=== PATIENT | male | born 1955 | race Caucasian/White ===

== ENCOUNTER 2021-06-02 09:20 | Emergency (ER) | payer BC, OTHER ==
--- NOTE | 2021-06-02 10:43 | EDPHYS ---
Physician Documentation [facility] Name: Olayinka Slaes Age: 65 yrs Sex: Male : 1955 Arrival Date: 06/02/2021 Time: 09:21 Bed Waiting Private MD: BILLY Physician Mark Elizalde HPI: 06/02 10:41 This 65 yrs old Male presents to ER via Ambulatory with complaints of Arm kb Injury. 10:41 The patient or guardian complains of decreased range of motion, deformity, injury, kb pain, swelling, tenderness. The complaints affect the left forearm. Context: The problem was sustained outdoors, resulted from a fall, on an outstretched hand. Onset: The symptoms/episode began/occurred just prior to arrival. Treatment prior to arrival includes: no previous treatment. Modifying factors: The symptoms are alleviated by nothing. the symptoms are aggravated by movement. Associated signs and symptoms: Pertinent positives: decreased range of motion, pain, swelling. Severity of symptoms: At their worst the symptoms were moderate, in the emergency department the symptoms are unchanged. The patient has not experienced similar symptoms in the past. The patient has not recently seen a physician. Pt reports he fell backwards and put his arm out to catch himself. Reports deformity to left forearm afterwards, but he pulled it straight. . Historical: - Allergies: 09:57 Iodine; aa5 09:57 Paper tape; aa5 - Home Meds: 09:57 Enalapril Oral [Active]; Metoprolol Tartrate Oral [Active]; Flomax Oral [Active]; aa5 - PMHx: 09:57 Hypertensive disorder; aa5 - PSHx: 09:57 lumbar fusion; c4 to c7 fusion; right shoulder; Tonsillectomy; Appendectomy; left elbow;aa5 - Immunization history:: Client reports having NOT received the Covid vaccine. - Social history:: Smoking status: Patient reports the use of cigarette tobacco products, smokes one pack cigarettes per day. ROS: 10:38 Constitutional: Negative for fever, chills, and weight loss. kb 10:38 MS/extremity: Positive for injury or acute deformity, decreased range of motion, pain, swelling, tenderness, of the left forearm. 10:38 All other systems are negative. kb Exam: 10:39 Constitutional: This is a well developed, well nourished patient who is awake, alert, kb and in no acute distress. Head/Face: Normocephalic, atraumatic. ENT: Moist Mucous membranes Respiratory: Respirations even and unlabored. No increased work of breathing, no retractions or nasal flaring. Skin: Warm, dry with normal turgor. Normal color. Neuro: Awake and alert, GCS 15, oriented to person, place, time, and situation. Moves all extremities. Normal gait. Psych: Awake, alert, with orientation to person, place and time. Behavior, mood, and affect are within normal limits. 10:39 Musculoskeletal/extremity: Extremities: grossly normal except: noted in the left forearm: decreased ROM, pain, swelling, tenderness, ROM: limited active range of motion due to pain, in the left forearm, Circulation is intact in all extremities. Sensation intact. Vital Signs: 09:55 BP 143 / 72; Pulse 60; Resp 20 S; Temp 97.6(TE); Pulse Ox 99% on R/A; Weight 83.91 kg aa5 (R); Height 5 ft. 11 in. (180.34 cm) (R); Pain 8/10; 09:55 Body Mass Index 25.80 (83.91 kg, 180.34 cm) aa5 Procedures: 11:02 Splinting: Splint applied to left forearm using Orthoglass splint, applied by tech. kb Examined by me, post splint application: neurovascular intact, brisk capillary refill noted, Patient tolerated well. MDM: 09:58 Patient medically screened. kb 10:35 Data reviewed: vital signs, nurses notes. Data interpreted: Pulse oximetry: on room air kb is 99 %. Interpretation: normal. 10:39 Counseling: I had a detailed discussion with the patient and/or guardian regarding: the kb historical points, exam findings, and any diagnostic results supporting the discharge/admit diagnosis, radiology results, the need for outpatient follow up, a orthopedic surgeon, to return to the emergency department if symptoms worsen or persist or if there are any questions or concerns that arise at home. 10:53 Test interpretation: by ED physician or midlevel provider: plain radiologic studies. kb 06/02 09:55 Order name: Forearm Left XRAY; Complete Time: 10:53 aa5 06/02 10:39 Order name: Sugar Tong Forearm Splint; Complete Time: 11:01 kb 06/02 10:39 Order name: Faustino; Complete Time: 11:01 kb Administered Medications: 10:53 Drug: [place] (HYDROcodone-acetaminophen) (7.5 mg-325 mg) 1 tabs Route: PO; kb 10:53 Drug: Ibuprofen 800 mg Route: PO; kb Disposition: 06/03 07:51 Co-signature as Attending Physician, Mark Elizalde MD I agree with the assessment and benigno plan of care. Disposition Summary: 06/02/21 10:43 Discharge Ordered Location: Home kb Condition: Stable kb Diagnosis - Displaced fracture left radius kb Followup: kb - With: Emergency Department - When: As needed - Reason: Worsening of condition Followup: kb - With: Private Physician - When: 2 - 3 days - Reason: Recheck today's complaints, Continuance of care, Re-evaluation by your physician Discharge Instructions: - Discharge Summary Sheet kb - Radial Fracture kb Forms: - Medication Reconciliation Form kb - Thank You Letter kb - Antibiotic Education kb - Prescription Opioid Use kb Prescriptions: - Ibuprofen 800 mg Oral Tablet - take 1 tablet by ORAL route every 8 hours As needed take with food; 30 tablet; kb Refills: 0, Product Selection Permitted Signatures: Dispatcher [employer] EDAnca Madrigal, VIDEO GAME DEVELOPER-C VIDEO GAME DEVELOPER-Mark Wells MD MD cha Calderon, Audri, RN RN aa5 Corrections: (The following items were deleted from the chart) 06/02 09:59 09:57 PMHx: Hyperthyroidism; aa5 aa5
--- NOTE | 2021-06-02 10:43 | ER ---
Nurse's Notes [facility] Name: Olayinka Sales Age: 65 yrs Sex: Male : 1955 Arrival Date: 06/02/2021 Time: 09:21 Bed Waiting Private MD: Diagnosis: Displaced fracture left radius Presentation: 06/02 09:55 Chief complaint: Patient states: left forearm deformity. Pt states "I fell backwards aa5 and try to catch my fall and dislocated my left arm and I put it back in place". Coronavirus screen: At this time, the client does not indicate any symptoms associated with coronavirus-19. Ebola Screen: Patient negative for fever greater than or equal to 101.5 degrees Fahrenheit, and additional compatible Ebola Virus Disease symptoms. Initial Sepsis Screen: Does the patient meet any 2 criteria? No. Patient's initial sepsis screen is negative. Does the patient have a suspected source of infection? No. Patient's initial sepsis screen is negative. Risk Assessment: Do you want to hurt yourself or someone else? Patient reports no desire to harm self or others. Onset of symptoms was May 2021. 09:55 Method Of Arrival: Ambulatory aa5 09:55 Acuity: DEWAYNE 3 aa5 Historical: - Allergies: 09:57 Iodine; aa5 09:57 Paper tape; aa5 - Home Meds: 09:57 Enalapril Oral [Active]; Metoprolol Tartrate Oral [Active]; Flomax Oral [Active]; aa5 - PMHx: 09:57 Hypertensive disorder; aa5 - PSHx: 09:57 lumbar fusion; c4 to c7 fusion; right shoulder; Tonsillectomy; Appendectomy; left elbow;aa5 - Immunization history:: Client reports having NOT received the Covid vaccine. - Social history:: Smoking status: Patient reports the use of cigarette tobacco products, smokes one pack cigarettes per day. Vital Signs: 09:55 BP 143 / 72; Pulse 60; Resp 20 S; Temp 97.6(TE); Pulse Ox 99% on R/A; Weight 83.91 kg aa5 (R); Height 5 ft. 11 in. (180.34 cm) (R); Pain 8/10; 09:55 Body Mass Index 25.80 (83.91 kg, 180.34 cm) aa5 ED Course: 09:21 Patient arrived in ED. as 09:54 Arm band placed on. aa5 09:56 Triage completed. aa5 09:58 [facility]agen [facility]C [facility] kb 09:58 Mark Elizalde MD is Attending Physician. kb 10:33 Forearm Left XRAY In Process Unspecified. EDMS 11:01 Orthoglass splint: Sugar tong splint applied on left arm. Sling applied to left arm. em1 Administered Medications: 10:53 Drug: [place] (HYDROcodone-acetaminophen) (7.5 mg-325 mg) 1 tabs Route: PO; kb 10:53 Drug: Ibuprofen 800 mg Route: PO; kb Outcome: 10:43 Discharge ordered by . kb 11:03 Patient left the ED. em1 Signatures: Dispatcher [employer] EDMS Anca Hagen FNP-C FNP-Pua Lenz Eric em1 Stephanie Larsen RN RN aa5 Corrections: (The following items were deleted from the chart) 09:59 09:57 PMHx: Hyperthyroidism; aa5 aa5
--- NOTE | 2021-06-02 10:44 | RAD REPORT ---
EXAM DESCRIPTION: RAD - Forearm Left - 06/02/2021 10:30 am CLINICAL HISTORY: PAIN, fall COMPARISON: None. FINDINGS: Transverse fracture is present through the metaphyseal portion of the distal left radius. Several small fracture fragments are seen along the main fracture plane. There is a slight dorsal ang ulation of the distal fracture fragment with minimal impaction along the dorsal margin. No measurable distraction. Ulna styloid is fractured. Carpal bones maintain normal positioning to the distal radial fracture fragment. No carpal bone acute finding identifiable. Remainder of the radius and ulna are intact. There are degenerative changes at the elbow joint withou t an acute finding seen. Spurring is seen near the triceps attachment. No elbow joint effusions seen. No foreign body or other soft tissue abnormality. IMPRESSION: Distal left radius and ulna fractures as detailed.
[2021-06-02 11:08] VITALS: BP 143/72; TEMP 97.6; O2SAT 99
[2021-06-02] MEDS ORDERED: HYDROCODONE/APAP 7.5/325 MG TAB ONE (11:14)
[2021-06-02] MEDS ORDERED: IBUPROFEN 400 MG TAB ONE (11:14)
== END 2021-06-02 11:03 | disposition home or self-care (01) ==
LOC: ER 09:20
PROC: 2W3DX1Z Immobilization of Left Lower Arm using Splint (ICD-10-PCS; principal; 2021-06-02)
DX: S52.92XA Unspecified fracture of left forearm, initial encounter for closed fracture (principal); W19.XXXA Unspecified fall, initial encounter; Y93.89 Activity, other specified; Y92.89 Other specified places as the place of occurrence of the external cause; Z91.048 Other nonmedicinal substance allergy status; I10 Essential (primary) hypertension; F17.210 Nicotine dependence, cigarettes, uncomplicated
CPT/HCPCS: 99283

== ENCOUNTER 2022-04-19 21:54 | Inpatient (IN) | payer OTHER ==
[2022-04-19] MEDS ORDERED: MORPHINE 4 MG/ML SYR ONE (23:17)
[2022-04-19] MEDS ORDERED: ONDANSETRON 4 MG/2 ML VIAL ONE (23:17)
[2022-04-19 23:34] LABS: Urine Blood 2+ (Negative); Urine Glucose Negative (Negative); Urine Protein Negative (Negative); Urine Specific Gravity 1.025 (1.005-1.030); Urine pH 5.5 (5.0-7.0)
[2022-04-19 23:44] LABS: Absolute Lymphocytes (CBC) 1.3 K/uL (0.7-4.9); Hematocrit 41.2 % (39.6-49.0); Lymphocytes % 9.6 % (15.3-44.8); MCV 87.4 fL (80-100); MPV 7.2 fL (7.6-11.3); RBC Red Blood Cell Count 4.71 M/uL (4.33-5.43)
[2022-04-19 23:57] LABS: Albumin 3.4 g/dL (3.4-5.0); Bilirubin Total 0.3 mg/dL (0.2-1.0); Potassium 3.9 mmol/L (3.5-5.1); Protein, Total 7.2 g/dL (6.4-8.2)
[2022-04-20 00:22] LABS: Urine RBC >50 /HPF (NONE SEEN)
[2022-04-20 00:23] LABS: Urine Bacteria <20 /HPF (NONE SEEN)
--- NOTE | 2022-04-20 02:46 | EDPHYS ---
Physician Documentation [facility] Name: Olayinka Sales Age: 66 yrs Sex: Male : 1955 Arrival Date: 04/19/2022 Time: 21:58 Bed 27 Private MD: ED Physician Emiilano Anderson HPI: 04/19 22:45 This 66 yrs old Male presents to ER via Ambulatory with complaints of Urinary Problem. mh7 22:45 The patient presents with flank pain, described as intermittent, waxing/waning, of the mh7 right flank, scrotal pain, of both sides, urinary symptoms, dysuria, hesitancy to initiate urine stream. 22:45 Onset: The symptoms/episode began/occurred 1 week(s) ago. Modifying factors: The mh7 symptoms are alleviated by nothing, the symptoms are aggravated by urinating. Associated signs and symptoms: Pertinent negatives: constipation, diarrhea, fever, hematuria, nausea, vomiting. Severity of symptoms: At their worst the symptoms were moderate, 3 day(s) ago, in the emergency department the symptoms are unchanged. States that he was admitted at an out of state hospital a week a go for kidney stones. He complains of pain to bladder, dysuria, and testicular pain.. Historical: - Allergies: 22:19 Iodine; eh3 22:19 paper tape; eh3 - PMHx: 22:19 Hypertensive disorder; eh3 - PSHx: 22:19 Appendectomy; c4 to c7 fusion; left elbow; lumbar fusion; right shoulder; Tonsillectomy;eh3 - Immunization history:: Adult Immunizations up to date, Client reports having NOT received the Covid vaccine. - Social history:: Smoking status: Patient reports the use of cigarette tobacco products, smokes one-half pack cigarettes per day, Patient/guardian denies using alcohol. ROS: 22:45 Constitutional: Negative for fever, chills, and weight loss, Eyes: Negative for injury, mh7 pain, redness, and discharge, ENT: Negative for injury, pain, and discharge, Neck: Negative for injury, pain, and swelling, Cardiovascular: Negative for chest pain, palpitations, and edema, Respiratory: Negative for shortness of breath, cough, wheezing, and pleuritic chest pain, MS/Extremity: Negative for injury and deformity, Skin: Negative for injury, rash, and discoloration, Neuro: Negative for headache, weakness, numbness, tingling, and seizure, Psych: Negative for depression, anxiety, suicide ideation, homicidal ideation, and hallucinations, Allergy/Immunology: Negative for hives, rash, and allergies, Endocrine: Negative for neck swelling, polydipsia, polyuria, polyphagia, and marked weight changes, Hematologic/Lymphatic: Negative for swollen nodes, abnormal bleeding, and unusual bruising. Exam: 22:45 Head/Face: Normocephalic, atraumatic. Eyes: Pupils equal round and reactive to light, mh7 extra-ocular motions intact. Lids and lashes normal. Conjunctiva and sclera are non-icteric and not injected. Cornea within normal limits. Periorbital areas with no swelling, redness, or edema. Neck: Trachea midline, no thyromegaly or masses palpated, and no cervical lymphadenopathy. Supple, full range of motion without nuchal rigidity, or vertebral point tenderness. No Meningismus. Chest/axilla: Normal chest wall appearance and motion. Nontender with no deformity. No lesions are appreciated. 22:45 Respiratory: Lungs have equal breath sounds bilaterally, clear to auscultation and percussion. No rales, rhonchi or wheezes noted. No increased work of breathing, no retractions or nasal flaring. 22:45 Skin: Warm, dry with normal turgor. Normal color with no rashes, no lesions, and no evidence of cellulitis. MS/ Extremity: Pulses equal, no cyanosis. Neurovascular intact. Full, normal range of motion. Neuro: Awake and alert, GCS 15, oriented to person, place, time, and situation. Cranial nerves II-XII grossly intact. Motor strength 5/5 in all extremities. Sensory grossly intact. Cerebellar exam normal. Normal gait. Psych: Awake, alert, with orientation to person, place and time. Behavior, mood, and affect are within normal limits. 22:45 Constitutional: The patient appears in no acute distress, alert, awake, uncomfortable. 22:45 Cardiovascular: Rate: tachycardic, Rhythm: regular, Pulses: no pulse deficits are appreciated, Heart sounds: normal, normal S1and S2, Edema: is not appreciated, JVD: is not appreciated. 22:45 Abdomen/GI: Inspection: abdomen appears normal, Bowel sounds: normal, in all quadrants, Palpation: moderate abdominal tenderness, in the suprapubic area, mass, is not appreciated, rebound tenderness, is not appreciated, voluntary guarding, is not appreciated, involuntary guarding, is not appreciated, no appreciated organomegaly, Indicators: McBurney's point is not tender, Jones's sign is negative, Rovsing's sign is negative, Obturator sign is negative, Psoas sign is negative, Liver: no appreciated palpable abnormalities, Hernia: not appreciated. 22:45 Back: normal spinal alignment noted, CVA tenderness, that is mild, is noted on the right, vertebral tenderness, is not appreciated, muscle spasm, is not present. 22:45 : CVA tenderness, is absent, Male external genitalia: erythema, of the left testicle mh7 and right testicle is seen, that is moderate, swelling, of the left testicle and right testicle is noted, that is moderate, tenderness, of the left testicle is noted, that is mild, Bladder: distension, that is mild, tenderness, that is moderate. Vital Signs: 22:17 BP 155 / 90; Pulse 120; Resp 18; Temp 98.7(TE); Pulse Ox 95% on R/A; Weight 77.11 kg; eh3 Height 5 ft. 10 in. (177.80 cm); Pain 07/18; 04/20 02:15 BP 152 / 77; Pulse 66; Resp 18 S; Pulse Ox 100% on R/A; as6 03:08 BP 127 / 68; Pulse 51; Resp 18 S; Pulse Ox 98% on R/A; as6 03:57 BP 144 / 88; Pulse 65; Resp 18 S; Pulse Ox 100% on R/A; as6 07/12 22:17 Body Mass Index 24.39 (77.11 kg, 177.80 cm) [facility] MDM: 02:41 Differential diagnosis: nonspecific abdominal pain, appendicitis, UTI, urinary mh7 retention, prostatitis, urethritis. Data reviewed: vital signs, nurses notes, lab test result(s), CBC, electrolytes, urinalysis, radiologic studies, CT scan, ultrasound. Data interpreted: Pulse oximetry: on room air is 100 %. Interpretation: normal. Counseling: I had a detailed discussion with the patient and/or guardian regarding: the historical points, exam findings, and any diagnostic results supporting the discharge/admit diagnosis, lab results, radiology results, the need for further work-up and treatment in the hospital. Response to treatment: the patient's symptoms have mildly improved after treatment. Physician consultation: Dominik Fabian MD was contacted at 02:30, regarding patient's condition, and will see patient in inpatient room, would like admission per Dr. Yony Melgoza. 02:45 Patient medically screened. [facility] 04/19 22:42 Order name: CBC with Diff; Complete Time: 00:53 [facility] 04/19 22:42 Order name: CMP; Complete Time: 00:53 [facility] 04/19 22:42 Order name: Lipase; Complete Time: 00:53 [facility] 04/19 22:58 Order name: Urine Microscopic Only; Complete Time: 00:53 [facility] 04/19 22:58 Order name: Urine Culture [facility] 04/19 23:34 Order name: Urine Dipstick-Ancillary; Complete Time: 23:38 [facility] 04/19 22:42 Order name: CT Stone Protocol [facility] 04/19 23:38 Order name: US Scrotum Testicles [facility] 04/20 02:40 Order name: Blood Culture Adult (2) [facility] 04/20 03:12 Order name: SARS-COV-2 RT PCR (Document "Date of Onset" if Symptomatic); Complete Time: sb3 05:14 04/19 22:42 Order name: IV Saline Lock; Complete Time: 23:04 [facility] 04/19 22:42 Order name: Labs collected and sent; Complete Time: 23:36 [facility] 04/19 22:42 Order name: Urine Dipstick-Ancillary (obtain specimen); Complete Time: 23:38 [facility] 04/19 22:58 Order name: Stuart; Complete Time: 23:08 [facility] Administered Medications: 04/19 23:15 Drug: Zofran (Ondansetron) 4 mg Route: IVP; Site: left forearm; aa9 23:37 Follow up: Response: No adverse reaction [facility] 23:36 Drug: morphine 4 mg Route: IVP; Infused Over: 4 mins; Site: left forearm; aa9 23:37 Follow up: Response: No adverse reaction [facility] 04/20 03:40 Drug: Rocephin (cefTRIAXone) 1 grams Route: IV; Rate: per protocol; Site: right aa9 antecubital; 03:50 Follow up: Response: No adverse reaction aa9 03:52 Follow up: Response: No adverse reaction; IV Status: Completed infusion aa9 03:42 Drug: vancoMYCIN 1 grams Route: IVPB; Infused Over: 2 hrs; Site: right antecubital; aa9 Disposition Summary: 04/20/22 02:45 Hospitalization Ordered Hospitalization Status: Inpatient Admission [facility] Provider: Yony Melgoza Krystina Condition: Stable [facility] Problem: an ongoing problem [facility] Symptoms: have improved [facility] Bed/Room Type: Standard [facility]: [facility] ER HOLD(04/20/22 04:00) Room Assignment: ERHOLD-(04/20/22 04:00) cg Diagnosis - Scrotal cellulitis [facility] - Urinary Retention [facility] Forms: - Medication Reconciliation Form 7 - SBAR form 7 Signatures: Dispatcher [employer] Kelsea Meehan RN RN cg Holmes, Maurice, MD MD 7 Jan Sawyer RN RN as6 Soraya Irizarry PA PA [email or web address] Lata Horton 3 Kezia Trinh RN RN aa9 Corrections: (The following items were deleted from the chart) 04:00 02:45 Telemetry/MedSurg (Inpatient) 7 cg 04:00 02:45 7 cg
--- NOTE | 2022-04-20 02:46 | ER ---
Nurse's Notes [facility] Name: Olayinka Sales Age: 66 yrs Sex: Male : 1955 Arrival Date: 04/19/2022 Time: 21:58 Bed 27 Private MD: Diagnosis: Scrotal cellulitis;Urinary Retention Presentation: 04/19 22:17 Chief complaint: Patient states: I have a 7 mm kidney stone - progressively getting eh3 more painful. Pt reports difficulty urinating. C/O left testicle pain and swelling. Coronavirus screen: At this time, the client does not indicate any symptoms associated with coronavirus-19. Ebola Screen: No symptoms or risks identified at this time. Initial Sepsis Screen: Does the patient meet any 2 criteria? No. Patient's initial sepsis screen is negative. Does the patient have a suspected source of infection? No. Patient's initial sepsis screen is negative. Risk Assessment: Do you want to hurt yourself or someone else? Patient reports no desire to harm self or others. Onset of symptoms was April 19, 2022. 22:17 Method Of Arrival: Ambulatory [facility] 22:17 Acuity: DEWAYNE 3 eh3 Triage Assessment: 22:19 General: Appears in no apparent distress. uncomfortable, Behavior is cooperative, eh3 anxious. Pain: Complains of pain in pelvis Pain does not radiate. Pain currently is 10 out of 10 on a pain scale. Quality of pain is described as heavy, pressure, Pain began gradually. EENT: No signs and/or symptoms were reported regarding the EENT system. Neuro: Level of Consciousness is awake, alert, obeys commands, Oriented to person, place, time, situation. Cardiovascular: Capillary refill < 3 seconds Patient's skin is warm and dry. Respiratory: Airway is patent Respiratory effort is even, unlabored. GI: Abdomen is flat, non-distended. : Reports inability to void, pain scrotum, testicle, with urination. Derm: No signs and/or symptoms reported regarding the dermatologic system. Musculoskeletal: No signs and/or symptoms reported regarding the musculoskeletal system. Historical: - Allergies: 22:19 Iodine; eh3 22:19 paper tape; eh3 - PMHx: 22:19 Hypertensive disorder; eh3 - PSHx: 22:19 Appendectomy; c4 to c7 fusion; left elbow; lumbar fusion; right shoulder; Tonsillectomy;eh3 - Immunization history:: Adult Immunizations up to date, Client reports having NOT received the Covid vaccine. - Social history:: Smoking status: Patient reports the use of cigarette tobacco products, smokes one-half pack cigarettes per day, Patient/guardian denies using alcohol. Screenin:03 Abuse screen: Denies threats or abuse. Denies injuries from another. Nutritional aa9 screening: No deficits noted. Tuberculosis screening: No symptoms or risk factors identified. Fall Risk None identified. Assessment: 22:56 General: Appears distressed, comfortable, Behavior is calm, cooperative, anxious, aa9 states," I have a bladder stone, I feel like I have to pee but when I do it's only a few drops.". Pain: Complains of pain in suprapubic area Pain does not radiate. Vital Signs: 22:17 BP 155 / 90; Pulse 120; Resp 18; Temp 98.7(TE); Pulse Ox 95% on R/A; Weight 77.11 kg; 3 Height 5 ft. 10 in. (177.80 cm); Pain 10/10; 04/20 02:15 BP 152 / 77; Pulse 66; Resp 18 S; Pulse Ox 100% on R/A; as6 03:08 BP 127 / 68; Pulse 51; Resp 18 S; Pulse Ox 98% on R/A; as6 03:57 BP 144 / 88; Pulse 65; Resp 18 S; Pulse Ox 100% on R/A; as6 07 22:17 Body Mass Index 24.39 (77.11 kg, 177.80 cm) [facility] ED Course: 04/19 21:58 Patient arrived in ED. 2 22:19 Triage completed. 3 22:19 Arm band placed on right wrist. 3 22:22 Jan Sawyer, SIVAN is Primary Nurse. as6 22:23 Emiliano Anderson MD is Attending Physician. [facility] 23:03 Patient has correct armband on for positive identification. Bed in low position. Call aa9 light in reach. 23:03 Inserted saline lock: 18 gauge in right antecubital area, using aseptic technique. aa9 23:35 Stuart cath inserted, using sterile technique, 16 Fr., by mi, balloon inflated, to aa9 gravity drainage, urine specimen collected. 23:36 CBC with Diff Sent. aa9 23:36 CMP Sent. aa9 23:36 Lipase Sent. aa9 23:38 Urine Culture Sent. aa9 23:38 Urine Microscopic Only Sent. aa9 04/20 00:01 CT Stone Protocol In Process Unspecified. EDMS 00:39 US Scrotum Testicles In Process Unspecified. EDMS 02:43 Yony Melgoza is Hospitalizing Provider. 7 03:50 SARS-COV-2 RT PCR (Document "Date of Onset" if Symptomatic) Sent. aa9 03:58 No provider procedures requiring assistance completed. Patient admitted, IV remains in as6 place. Administered Medications: 04/19 23:15 Drug: Zofran (Ondansetron) 4 mg Route: IVP; Site: left forearm; aa9 23:37 Follow up: Response: No adverse reaction aa9 23:36 Drug: morphine 4 mg Route: IVP; Infused Over: 4 mins; Site: left forearm; aa9 23:37 Follow up: Response: No adverse reaction aa9 04/20 03:40 Drug: Rocephin (cefTRIAXone) 1 grams Route: IV; Rate: per protocol; Site: right aa9 antecubital; 03:50 Follow up: Response: No adverse reaction aa9 03:52 Follow up: Response: No adverse reaction; IV Status: Completed infusion aa9 03:42 Drug: vancoMYCIN 1 grams Route: IVPB; Infused Over: 2 hrs; Site: right antecubital; aa9 Medication: 03:58 VIS not applicable for this client. as6 Outcome: 02:45 Decision to Hospitalize by Provider. 7 03:58 Admitted to ER Hold. Please see [facility] for further documentation. as6 03:58 Condition: stable 03:58 Instructed on the need for admit. 13:28 Patient left the ED. iw Signatures: Dispatcher [employer] Enma Rodriguez, Emiliano Farrell RN, MD MD 7 Jodee Jeong Ashby, RN RN as6 Lata Horton [facility] Kezia Trinh RN RN aa9
[2022-04-20] MEDS ORDERED: NA CHLORIDE 0.9% 0 ML ONE (03:35)
[2022-04-20] MEDS ORDERED: VANCOMYCIN 1 GM/VIAL ONE (03:35)
[2022-04-20] MEDS ORDERED: CEFTRIAXONE 1000 MG/VIAL ONE (03:35)
[2022-04-20] MEDS ORDERED: NA CHLORIDE 0.9% 50 ML ONE (03:36)
[2022-04-20] MEDS ORDERED: NA CHLORIDE 0.9% 250 ML ONE (03:37)
--- NOTE | 2022-04-20 03:38 | P.HP ---
Certification for Inpatient Patient admitted to: Inpatient With expected LOS: <2 Midnights Patient will require the following post-hospital care: None Practitioner: I am a practitioner with admitting privileges, knowledge of patient current condition, hospital course, and medical plan of care. Services: Services provided to patient in accordance with Admission requirements found in Title 42 Section 412.3 of the Code of Federal Regulations Patient History Date of Service: 04/20/22 Reason for admission: Urinary Retention, Orchitis History of Present Illness: Patient is a 66 y/o male with hypertension who presented to the ED with complaints of dysuria, urinary retention, and left testicular pain/swelling. He reports that he was treated at an outside hospital about 1 week ago for a 7 mm kidney stone. Stuart was placed. WBC today 13.9. CT stone protocol today showed 6 mm stone in the posterior/dependent bladder, mild bilateral perinephritic stranding, bilateral hydroceles, prostate 5.7 cm in diameter. Scrotal US showed decreased arterial flow in both testicles, complex left scrotal hydrocele, and large right scrotal hydrocele. Urology was notified and does not think surgical intervention is necessary but has agreed to consult. Patient was started on vancomycin and rocephin in ED. He is admitted for further evaluation and treatment. Home medications list reviewed: Yes - Past Medical/Surgical History Diabetic: No -: Hypertension -: Appendectomy -: C4-C7 Fusion -: Lumbar Fusion -: R shoulder repair Psychosocial/ Personal History: Patient lives out of town. - Family History Family History: Reviewed- Non-Contributory - Social History Smoking Status: Current every day smoker Alcohol use: No CD- Drugs: No Caffeine use: Yes Place of Residence: Home Review of Systems Genitourinary: Dysuria, Frequency, Urgency, Retention Physical Examination - Physical Exam General: Alert, In no apparent distress HEENT: Atraumatic, PERRLA, EOMI, Sclerae nonicteric Neck: Supple, 2+ carotid pulse no bruit, No LAD, Without JVD or thyroid abnormality Respiratory: Clear to auscultation bilaterally, Normal air movement Cardiovascular: Regular rate/rhythm, Normal S1 S2 Gastrointestinal: Normal bowel sounds, No tenderness Musculoskeletal: No tenderness Integumentary: No rashes Neurological: Normal speech, Normal strength at 5/5 x4 extr, Normal tone, Normal affect Urinary: Stuart catheter - Studies Laboratory Data (last 24 hrs) 04/19/22 23:19: Sodium 140, Potassium 3.9, BUN 14, Creatinine 1.03, Glucose 125 H, Total Bilirubin 0.3, AST 20, ALT 34, Alkaline Phosphatase 141 H, Lipase 86 04/19/22 23:19: WBC 13.9 H, Hgb 13.9, Hct 41.2, Plt Count 474 H Male Exam - Male Exam Testicular exam: No twisting, Hydrocele, Other (swollen, tender) Assessment and Plan - Problems (Diagnosis) (1) 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 Monitor output -Morphine PRN pain -Monitor and replete electrolytes per protocol -Reconcile and continue home medications -Lovenox for VTE ppx -Full code Discharge Plan: Home Plan to discharge in: 48 Hours - Advance Directives Does patient have a Living Will: No Does patient have a Durable POA for Healthcare: No - Code Status/Comfort Care Code Status Assessed: Yes (Full) Critical Care: No Time Spent Managing Pts Care (In Minutes): 50
[2022-04-20] MEDS ORDERED: VANCOMYCIN 1 GM in NA CHLORIDE 0.9% 250 ML IVPB SCH (04:28)
[2022-04-20] MEDS ORDERED: ONDANSETRON 4 MG/2 ML VIAL IV PRN (04:28)
[2022-04-20] MEDS ORDERED: ACETAMINOPHEN 500 MG TAB PO PRN (04:28)
[2022-04-20] MEDS: MORPHINE 2 MG/ML SYR IV PRN ×4 (04:40→17:55)
[2022-04-20] MEDS ORDERED: MORPHINE 2 MG/ML SYR ONE ×3 (04:47→13:16)
[2022-04-20 05:31] VITALS: BMI 24.3
[2022-04-20] MEDS ORDERED: VANCOMYCIN 500 MG in NA CHLORIDE 0.9% 100 ML IVPB ONE (06:30)
[2022-04-20] MEDS ORDERED: POTASSIUM CL SA 10 MEQ TAB PO ONE ×2 (07:35→09:01)
[2022-04-20] MEDS: ENOXAPARIN 40 MG/0.4 ML SQ SCH (08:57)
[2022-04-20] MEDS: PIPER TAZO 3.375 GM in NA CHLORIDE 0.9% 100 ML IV SCH ×2 (08:57→16:03)
[2022-04-20] MEDS ORDERED: PIPERACIL/TAZO 3.375 GM VIAL IV ONE (09:01)
[2022-04-20] MEDS ORDERED: ENOXAPARIN 40 MG/0.4 ML SQ ONE (09:01)
[2022-04-20] MEDS ORDERED: NA CHLORIDE 0.9% 100 ML ONE ×2 (09:01→09:04)
[2022-04-20] MEDS ORDERED: VANCOMYCIN 500 MG/VIAL ONE (09:04)
[2022-04-20 10:45] VITALS: O2SAT 97
--- NOTE | 2022-04-20 12:38 | RAD REPORT ---
EXAM DESCRIPTION: US - Scrotum Testicles - 04/20/2022 1:53 am CLINICAL HISTORY: PAIN. COMPARISON: CT of the abdomen and pelvis from today. TECHNIQUE: Real-time grayscale and color Doppler imaging was obtained of the scrotum. FINDINGS: Right testicle/epididymis: The right testicle measures 3.9 x 3.4 x 2.9 cm. Homogeneous t esticular echotexture with normal arterial blood flow. Nonenlarged epididymis with normal blood [place] w. No varicocele. Large hydrocele. Left testicle/epididymis: The left testicle measures 4.3 x 3.4 x 3.3 cm. Homogeneous testicular ech otexture. Although arterial flow is identified to the left testicle, the flow is diminished in streng th as compared to the right. Nonenlarged epididymis with normal blood flow. No varicocele. Very c omplex medium sized hydrocele. IMPRESSION: 1. Arterial flow is identified in both testicles, although diminished on the left comp ared to the right. This is nonspecific. Differential includes intermittent torsion in the appropriate clinical setting. 2. Complex left scrotal hydrocele. 3. Large right scrotal hydrocele. Electronically signed by: Heather Vickers MD 04/20/2022 12:57 AM CDT Due to temporary technical issues with the PACS/Fluency reporting system, reports are being signed by the in house radiologists without review as a courtesy to insure prompt reporting. The interpreting radiologist is fully responsible for the content of the report.
--- NOTE | 2022-04-20 13:15 | RAD REPORT ---
EXAM DESCRIPTION: CT - Stone Protocol - 04/20/2022 6:39 am CLINICAL HISTORY: The patient is 66 years old and is Male; Flank pain, kidney stone suspected TECHNIQUE: Axial computed tomography images of the abdomen and pelvis without intravenous contrast. Sagittal and coronal reformatted images were created and reviewed. This CT exam was performed usi ng one or more of the following dose reduction techniques: automated exposure control, adjustment o f the mA and/or kV according to patient size, and/or use of iterative reconstruction technique. COMPARISON: No relevant prior studies available. FINDINGS: Lung bases: Unremarkable. No mass. No consolidation. ABDOMEN: Liver: Unremarkable. Gallbladder and bile ducts: Unremarkable. No calcified stones. No ductal dilation. Pancreas: Unremarkable. No ductal dilation. Spleen: Unremarkable. No splenomegaly. Adrenals: Unremarkable. No mass. Kidneys and ureters: Mild bilateral perinephric stranding. Nonobstructive calcification in the right kidney. Stomach and bowel: Unremarkable. No obstruction. No mucosal thickening. PELVIS: Appendix: No findings to suggest acute appendicitis. Bladder: There appears to be a 6 mm stone in the posterior/dependent bladder. The bladder is deco mpressed limiting evaluation. Stuart catheter in place. Reproductive: Bilateral hydroceles possibly with scrotal thickening. There is an asymmetric appea jamey to the testicles. Prostate is enlarged measuring up to 6.7 cm in diameter. ABDOMEN and PELVIS: Intraperitoneal space: Unremarkable. No free air. No significant fluid collection. Bones/joints: Indeterminate age fracture versus unfused transverse process at L2. Laminectomy with posterior jam and screw fixation at L4-5. No dislocation. Soft tissues: Unremarkable. Vasculature: Unremarkable. No abdominal aortic aneurysm. Lymph nodes: Unremarkable. No enlarged lymph nodes. IMPRESSION: 1. There appears to be a 6 mm stone in the posterior/dependent bladder. The bladder is decompressed limiting evaluation. 2. Mild bilateral perinephric stranding. 3. Bilateral hydroceles possibly with scrotal thickening. There is an asymmetric appearance to the te sticles. Consider scrotal ultrasound for further evaluation if clinically indicated. 4. Indeterminate age fracture versus unfused transverse process at L2. 5. Prostate is enlarged measuring up to 6.7 cm in diameter. 6. Stuart catheter in place. Electronically signed by: Shukri Fraire MD 04/20/2022 12:37 AM CDT Due to temporary technical issues with the PACS/Fluency reporting system, reports are being signed by the in house radiologists without review as a courtesy to insure prompt reporting. The interpreting radiologist is fully responsible for the content of the report.
[2022-04-20 15:17] LABS: Urine Appearance TURBID (Clear); Urine Bilirubin Negative (Negative); Urine Blood 3+ (Negative); Urine Color Yellow (Yellow); Urine Glucose Negative (Negative); Urine Protein 1+ (Negative); Urine Specific Gravity 1.025 (1.005-1.030); Urine Urobilinogen 0.2 mg/dL (0.2-1.0)
[2022-04-20 15:23] LABS: Urine Bacteria <20 /HPF (NONE SEEN); Urine Mucus 1+ /HPF (NONE SEEN); Urine RBC 20-50 /HPF (NONE SEEN)
--- NOTE | 2022-04-20 15:57 | P.PN ---
Date of Service: 04/20/22 Patient seen and examined. He is complaining of left scrotal pain. Had urinary retention on presentation, Stuart catheter inserted with good urine output. Urine was initially bloodstained but now dark-colored. Left scrotal swelling-complex left scrotal hydrocele per ultrasound. CT abdomen pelvis also indicated bladder stone and bilateral pyelonephritis. Plan: Aggressive antibiotic therapy Infectious disease consult. Pain management as needed Scrotal support. Follow blood cultures and urine culture. Urology consulted. Urine analysis was nondiagnostic for UTI.
[2022-04-20] MEDS: VANCOMYCIN 1.5 GM in NA CHLORIDE 0.9% 500 ML IVPB SCH (17:56)
[2022-04-21] MEDS ORDERED: VANCOMYCIN 1.5 GM in NA CHLORIDE 0.9% 500 ML IVPB SCH ×2
--- NOTE | 2022-04-21 00:55 | CON ---
Reason For Consultation: Testicular abnormality and pain. History Of Present Illness: Mr. Sales is a 66-year-old gentleman with no ongoing chronic medical p roblems, previously hypertensive and hypercholesterolemia but managed with significant weight loss, i ntentionally now on not of those medications, with longstanding issues of lower urinary tract obstruc tion due to BPH, previously managed on Flomax 0.4 mg daily. Within the last 3 weeks, he developed dy suria that progressed to left testicular swelling and pain. It was associated with fever and chills and resulted in him going to the emergency department in with a [facility] care. There, [place] [address] and being admitted to the hospital. He was treated initially with IV antimicrobials, and eventually transitioned to Levaquin. A week later, he needed to depart for some personal reasons and left against medical advice, discharged with a prescri ption for Levaquin 750 mg daily, continuing the Flomax, adding finasteride, and oxybutynin. While he noticed improvement in his left testicular swelling and pain, he presented to the emergency departme yesterday evening after noting increasing difficulty generating a void. Eventually, he could only trickle small amounts of urine out and had a very full bladder consistent with urinary retention and came to the emergency department. There, a Stuart catheter was placed with a large volume of urine d rained out. He has since been admitted because of concerns of findings on an ultrasound as described below. Past Medical History: None as above. Physical Examination: General: Well-appearing, and in no acute distress. Alert, awake, oriented x3. Chest: No dyspnea or sign of respiratory distress. Abdomen: Soft, nontender, nondistended, no masses. Back: No CVA tenderness. Genitalia: Circumcised without lesion, orthotopic meatus with urethral Stuart catheter in place, drain ing clear urine with some blood clot, occasional sediment noted. Testes bilaterally descended. Righ t mild hydrocele noted, but no right testicular masses. The left testis markedly enlarged, though mi nimally tender at this time. No scrotal crepitus or significant erythema noted. Scrotal ultrasound, 04/20/2022, revealed the presence of arterial flow to both testicles, but diminis hed on the left compared to the right. There was complex left scrotal hydrocele and a large right sc rotal hydrocele identified on ultrasound. A CT scan without contrast obtained 04/20/2022 was remarkable for the presence of a 6 mm stone depend ent within the bladder. Otherwise, there was mild bilateral perinephric stranding and a nonobstructi ve calcification in the right kidney. The Stuart catheter was appropriately positioned. Laboratory Data: Laboratory analysis revealed: White count 13.9, creatinine 1.03, urinalysis with mi croscopic assessment. No nitrites/leukocyte esterase at this time, greater than 50 rbc per HPF, 5 to 10 wbc per HPF. Assessment And Recommendations: This is a 66-year-old gentleman with no ongoing significant chronic medical conditions, but with chronic benign prostatic hypertrophy with obstruction and lower urinary tract symptoms, complicated by cysto prostatitis that developed into an epididymal orchitis and possi tonie a mild pyelonephritis, treated with presumptively culture sensitive Levaquin 750 mg daily, but wi th acute urinary retention, likely the consequence of treatment with oxybutynin, with which he was di scharged on following his visit and admission to the in [place], [place]. I recommend he maintain the urethral Stuart catheter for at least the next 7 to 10 days before followi ng up in the Urology Clinic for an active voiding trial. He should continue the Flomax, but the bene fit of the finasteride is limited at this time. I counseled him that he may continue the oxybutynin for bladder spasms while the catheter is in place , but he should discontinue taking the oxybutynin at least 24 hours prior to a scheduled voiding tria l, otherwise, he is unable and unlikely to be able to void sufficiently to pass the voiding trial. Subsequently, he will require cystoscopic evaluation and likely surgical management of his obstructio n due to BPH. PSA testing should also be arranged. I would also ensure he is treated with at least an additional 14 to 21 days of the Levaquin to comple tely resolve the epididymal orchitis. It would also be helpful to follow up with the for the culture results, on whi ch they based the decision to discharge him on Levaquin. [facility] success and the disk of medical information did not provide any culture results o r labs and only the CT scan and scrotal ultrasounds that he obtained there were visible to my review. Over 45 minutes of time was spent in this consultation, the majority in [id number] examination and counseling, but an additional 15 to 20 minutes attempting to review the records on CD and reach out t o the [facility] for culture results. TIAGO/AYESHA Voice ID: [id number] Report ID: [id number]
[2022-04-21] MEDS: PIPER TAZO 3.375 GM in NA CHLORIDE 0.9% 100 ML IV SCH ×3 (01:24→16:19)
[2022-04-21 04:19] LABS: Absolute Lymphocytes (CBC) 1.2 K/uL (0.7-4.9); Hematocrit 37.6 % (39.6-49.0); Lymphocytes % 10.4 % (15.3-44.8); MCV 87.4 fL (80-100); MPV 7.3 fL (7.6-11.3)
[2022-04-21 04:29] LABS: Potassium 4.3 mmol/L (3.5-5.1)
[2022-04-21] MEDS: ENOXAPARIN 40 MG/0.4 ML SQ SCH (08:29)
[2022-04-21] MEDS: VANCOMYCIN 1.5 GM in NA CHLORIDE 0.9% 500 ML IVPB SCH (13:23)
--- NOTE | 2022-04-21 14:50 | P.PN ---
Subjective Date of Service: 04/21/22 Chief Complaint: Urinary Retention, Orchitis Patient stated he feels much better today. He still report pain in the right inguinal area, no scrotal pain. No significant change in left testicular swelling. He has been afebrile. Physical Examination - Vital Signs Temperature: 98.7 F Blood Pressure: 133/74 Pulse: 66 Respirations: 16 Pulse Ox (%): 96 - Physical Exam General: Alert, In no apparent distress, Oriented x3 HEENT: Mucous membr. moist/pink Neck: Supple, JVD not distended Respiratory: Clear to auscultation bilaterally, Normal air movement Cardiovascular: No edema, Regular rate/rhythm, Normal S1 S2 Gastrointestinal: Normal bowel sounds, Soft and benign, Non-distended, No tenderness Musculoskeletal: No swelling, No tenderness Integumentary: No rashes, No erythema, No cyanosis Neurological: Normal speech, Normal strength at 5/5 x4 extr Lymphatics: No axilla or inguinal lymphadenopathy External genitalia: Other (Bilateral testicular swelling, worse on the left.) - Studies Microbiology Data (last 24 hrs): 04/19/22 23:32 Clean Catch Urine Mason Count - Final No growth. 04/19/22 23:32 Clean Catch Urine - Final No growth. Assessment And Plan - Current Problems (Diagnosis) (1) Acute cystitis with hematuria Current Visit: Yes Status: Acute (2) Acute urinary retention Current Visit: Yes Status: Acute (3) Bladder stone Current Visit: Yes Status: Acute (4) Enlarged prostate Current Visit: Yes Status: Acute (5) Orchitis and epididymitis Current Visit: Yes Status: Acute (6) Pyelonephritis Current Visit: Yes Status: Acute (7) Hydrocele of testis Current Visit: Yes Status: Chronic (8) Leukocytosis Current Visit: Yes Status: Acute Qualifiers: Leukocytosis type: unspecified Qualified Code(s): D72.829 - Elevated white blood cell count, unspecified - Plan Patient with multiple sites genitourinary function with accompanying bladder stone, BPH and testicular hydrocele. Urine culture and blood cultures have yielded no growth. Continue broad-spectrum antibiotics-Zosyn and vancomycin. Leukocytosis almost resolved. Seen by urology-Dr. Fabian who recommend to maintain Stuart catheter and follow- up with him in the office. Supportive measures Pain management as needed. Will treat with IV antibiotics for 1 more day and discharged with oral antibiotics.
[2022-04-21] MEDS ORDERED: KETOROLAC 30 MG/ML INJ IV PRN (14:53)
[2022-04-21] MEDS ORDERED: OXYBUTYNIN CHLORIDE 5 MG TAB PO ONE (20:41)
[2022-04-21] MEDS ORDERED: TAMSULOSIN 0.4 MG SR CAP PO ONE (20:41)
[2022-04-21] MEDS: MORPHINE 2 MG/ML SYR IV PRN (20:42)
[2022-04-22] MEDS: PIPER TAZO 3.375 GM in NA CHLORIDE 0.9% 100 ML IV SCH ×2 (01:38→08:27)
[2022-04-22] MEDS: MORPHINE 2 MG/ML SYR IV PRN (02:28)
[2022-04-22 04:47] LABS: Absolute Lymphocytes (CBC) 1.2 K/uL (0.7-4.9); Hematocrit 36.7 % (39.6-49.0); Lymphocytes % 11.6 % (15.3-44.8); MCV 86.5 fL (80-100); MPV 6.9 fL (7.6-11.3); RBC Red Blood Cell Count 4.24 M/uL (4.33-5.43)
[2022-04-22 04:59] LABS: Potassium 4.2 mmol/L (3.5-5.1)
[2022-04-22] MEDS: VANCOMYCIN 1.5 GM in NA CHLORIDE 0.9% 500 ML IVPB SCH (06:40)
[2022-04-22 08:23] VITALS: BP 138/71; TEMP 98.2
[2022-04-22] MEDS: ENOXAPARIN 40 MG/0.4 ML SQ SCH (08:26)
--- NOTE | 2022-04-22 08:51 | P.DS ---
Admission Date: 04/20/22 Discharge Date: 04/22/22 Disposition: ROUTINE DISCHARGE Discharge Condition: FAIR Reason for Admission: Urinary Retention, Orchitis - Problems (1) Acute cystitis with hematuria Status: Acute (2) Acute urinary retention Status: Acute (3) Bladder stone Status: Acute (4) Enlarged prostate Status: Acute (5) Orchitis and epididymitis Status: Acute (6) Pyelonephritis Status: Acute (7) Hydrocele of testis Status: Chronic (8) Leukocytosis Status: Acute Qualifiers: Leukocytosis type: unspecified Qualified Code(s): D72.829 - Elevated white blood cell count, unspecified Brief History of Present Illness: Patient is a 66 y/o male with hypertension who presented to the ED with complaints of dysuria, urinary retention, and left testicular pain/swelling. He reported that he was treated at an outside hospital about 1 week ago for urinary tract infection, a 7 mm kidney stone. Stuart was placed. WBC today 13.9. CT stone protocol here showed 6 mm stone in the posterior/dependent bladder, mild bilateral perinephritic stranding, bilateral hydroceles, prostate 5.7 cm in diameter. Scrotal US showed decreased arterial flow in both testicles, complex left scrotal hydrocele, and large right scrotal hydrocele. Urology was notified and he did not suggest any surgical intervention but agreed to consult. Patient was started on vancomycin and rocephin in ED and admitted for further management. Hospital Course: Patient admitted to the medical floor and treated with aggressive IV antibiotics-vancomycin and Zosyn. Urine culture and blood cultures yielded no growth. Patient's symptoms gradually improved with treatment. He has severe leukocytosis which resolved with antibiotics. He has been ambulatory, and eating well. Urology-Dr. Fabian saw him and recommended that his Stuart c atheter be retained and outpatient follow-up with him for voiding trial. Patient has clinically improved and deemed stable for discharge. He is prescribed Levaquin and doxycycline to continue treatment of his genitourinary infections. Vital Signs/Physical Exam: Temp Pulse Resp BP Pulse Ox 98.2 F 70 14 138/71 98 04/22/22 08:00 04/22/22 08:00 04/22/22 08:00 04/22/22 08:00 04/22/22 08:00 General: Alert, In no apparent distress, Oriented x3 HEENT: Mucous membr. moist/pink Neck: JVD not distended Respiratory: Clear to auscultation bilaterally, Normal air movement Cardiovascular: No edema, Regular rate/rhythm, Normal S1 S2 Gastrointestinal: Normal bowel sounds, Soft and benign, Non-distended, No tenderness Musculoskeletal: No swelling Integumentary: No rashes Neurological: Normal strength at 5/5 x4 extr External genitalia: Other (Bilateral testes swollen, worse on the on the left, overall the swelling have improved.) Laboratory Data at Discharge: WBC 10.3 K/uL (4.3-10.9) 04/22/22 04:30 Hgb 12.9 g/dL (13.6-17.9) L 04/22/22 04:30 Hct 36.7 % (39.6-49.0) L 04/22/22 04:30 Plt Count 381 K/uL (152-406) 04/22/22 04:30 Sodium 137 mmol/L (136-145) 04/22/22 04:30 Potassium 4.2 mmol/L (3.5-5.1) 04/22/22 04:30 BUN 15 mg/dL (7-18) 04/22/22 04:30 Creatinine 0.94 mg/dL (0.55-1.3) 04/22/22 04:30 Glucose 99 mg/dL (74-106) 04/22/22 04:30 Magnesium 2.0 mg/dL (1.8-2.4) 04/21/22 03:16 Total Bilirubin 0.3 mg/dL (0.2-1.0) 04/19/22 23:19 AST 20 U/L (15-37) 04/19/22 23:19 ALT 34 U/L (12-78) 04/19/22 23:19 Alkaline Phosphatase 141 U/L (45-117) H 04/19/22 23:19 Lipase 86 U/L (73-393) 04/19/22 23:19 Home Medications: Finasteride 5 mg PO DAILY 04/20/22 Oxybutynin Chloride 5 mg PO BID 04/20/22 Tamsulosin HCl [Flomax] 0.4 mg PO DAILY 04/20/22 Codeine/APAP [Tylenol W/Codeine #3 tab] 1 tab PO Q6HP PRN #20 tab 04/22/22 Doxycycline Hyclate 100 mg PO BID #14 capsule 04/22/22 Ibuprofen 400 mg PO TID #30 tablet 04/22/22 levoFLOXacin [Levaquin*] 750 mg PO DAILY #7 tab 04/22/22 New Medications: Codeine/APAP [Tylenol W/Codeine #3 tab] 1 tab PO Q6HP PRN #20 tab PRN Reason: Pain Doxycycline Hyclate 100 mg PO BID #14 capsule Ibuprofen 400 mg PO TID #30 tablet levoFLOXacin [Levaquin*] 750 mg PO DAILY #7 tab Followup: Hedy Gonzalez NP [Primary Care Provider] - Time spent managing pt's care (in minutes): 38
[2022-04-22] MEDS ORDERED: FINASTERIDE 5 MG TAB PO SCH (09:00)
[2022-04-22] MEDS ORDERED: TAMSULOSIN 0.4 MG SR CAP PO SCH (09:00)
--- OUTSIDE RECORDS SUMMARY | 2022-04-28 02:15 | XMS REPORT | Continuity of Care Document ---
:1955 Author Organization [facility] t Address [address] [place] [address] Dr. Cardenas[address] [place] [address] Care Team Providers Name Role Phone Carlos Attending Clinician Unavailable Problems This patient has no known problems. Allergies, Adverse Reactions, Alerts This patient has no known allergies or adverse reactions. Medications This patient has no known medications. Procedures This patient has no known procedures. Encounters Start End Encounter Admission Attending Care Care Encounter Source Date/Time Date/Time Type Type Clinicians Facility Department ID 2022-04-26 Outpatient Howard, STLMLC [facility] [id number] Common 09:39:[address] [facility] 2022-04-04 Outpatient Howard[facility] [id number] Common 09:42:[address] [facility] 2022-01-05 Outpatient Howard, STLMLC [facility] [id number] Common 06:45:[address] [facility] 2022-01-04 Outpatient Howard, STLMLC [facility] [id number] Common 10:15:[address] [facility] 2022-01-03 Outpatient Howard, STLMLC [facility] [id number] Common 14:33:[address] [facility] 2021-12-31 Outpatient Howard, STLMLC [facility] [id number] Common 10:31:[address] [facility] 2021-12-09 Outpatient Howard, STLMLC [facility] [id number] Common 14:22:[address] [facility] 2021-11-03 Outpatient Howard, STLMLC [facility] [id number] Common 14:13:[id number] [facility] 2021-11-03 Outpatient Howard, STLMLC [facility] [id number] Common 13:53:[id number] [facility] 2021-11-03 Outpatient Howard, STLMLC [facility] [id number] Common 13:45:[id number] [facility] 2021-11-03 Outpatient Howard, STLMLC [facility] [id number] Common 13:43:[id number] [facility] 2022-04-22 2022-04-22 ambulatory [facility]LMLC [facility] [id number] Common 00:00:00 00:00:00 [facility] 2022-04-18 2022-04-18 ambulatory STLMLC [facility] [id number] Common 00:00:00 00:00:00 [facility] 2022-04-05 2022-04-05 ambulatory STLMLC [facility] [id number] Common 00:00:00 00:00:00 [facility] 2022-01-04 2022-01-04 ambulatory [facility]LMLC [facility] [id number] Common 00:00:00 00:00:00 [facility] 2022-01-04 2022-01-04 ambulatory [facility]LMLC [facility] [id number] Common 00:00:00 00:00:00 [facility] 2021-12-28 2021-12-28 ambulatory STLMLC [facility] [id number] Common 00:00:00 00:00:00 [facility] 2021-10-29 2021-10-29 ambulatory STLMLC [facility] [id number] Common 00:00:00 00:00:00 [facility] 2021-08-23 2021-08-23 ambulatory STLMLC [facility] [id number] Common 00:00:00 00:00:00 [facility] 2021-07-08 2021-07-08 Outpatient [facility]C [facility] [id number] Common 00:00:00 00:00:00 [facility] 2021-07-06 2021-07-06 Outpatient [facility]C [facility] [id number] Common 00:00:00 00:00:00 [facility] 2021-06-24 2021-06-24 Outpatient [facility]C [facility] [id number] Common 00:00:00 00:00:00 [facility] 2021-06-21 2021-06-21 Outpatient [facility]C [facility] [id number] Common 00:00:00 00:00:00 [facility] 2021-06-10 2021-06-10 Outpatient [facility]C [facility] [id number] Common 00:00:00 00:00:00 [facility] 2021-06-03 2021-06-03 Outpatient [facility]C [facility] [id number] Common 00:00:00 00:00:00 [facility] Results This patient has no known results.
== END 2022-04-22 11:34 | disposition home or self-care (01) | DRG 690 ==
LOC: ER 21:54 → ERHOLD 04-20 03:32 → 4TH 04-20 12:49
PROVIDERS: ADMIT Internal Medicine; ATTEND Internal Medicine
DX: N30.01 Acute cystitis with hematuria (principal); N10 Acute pyelonephritis; N40.1 Benign prostatic hyperplasia with lower urinary tract symptoms; R33.8 Other retention of urine; N43.3 Hydrocele, unspecified; N45.3 Epididymo-orchitis; N21.0 Calculus in bladder; F17.210 Nicotine dependence, cigarettes, uncomplicated; Z20.822 Contact with and (suspected) exposure to COVID-19
CPT/HCPCS: 36415; 51702; 74176; 76377; 76870; 80048; 80053; 80202; 81003; 81015; 83690; 83735; 85025; 87040; 87086; 87088; 99285; J1650; J2270; J2405; J2543; J3370; J7040; J7050; U0003

== ENCOUNTER 2022-06-10 08:02 | Day surgery (SDC) | payer MEDICARE ==
[2022-06-10] MEDS ORDERED: CEFAZOLIN 2 GM IN 0.9% NACL 2 GM/100 ML BAG ONE (08:28)
[2022-06-10] MEDS ORDERED: Ringers Lactate 1,000 ML IV ONE ×2 (08:28→14:26)
[2022-06-10 08:35] LABS: Absolute Lymphocytes (CBC) 1.5 K/uL (0.7-4.9); Hematocrit 43.1 % (39.6-49.0); Lymphocytes % 18.8 % (15.3-44.8); MCV 86.5 fL (80-100); MPV 7.3 fL (7.6-11.3); RBC Red Blood Cell Count 4.98 M/uL (4.33-5.43)
--- NOTE | 2022-06-10 08:35 | RAD REPORT ---
EXAM DESCRIPTION: Frandy Single View06/10/2022 8:28 am CLINICAL HISTORY: Preop COMPARISON: none FINDINGS: The lungs appear clear of acute infiltrate. The heart is normal size IMPRESSION: No acute abnormalities displayed
[2022-06-10] MEDS ORDERED: FENTANYL CITR 100 MCG/2 ML ONE ×3 (09:30→11:17)
[2022-06-10] MEDS ORDERED: BUPIVACAINE 0.25% PF 10 ML VIAL ONE (09:35)
[2022-06-10] MEDS ORDERED: BACITRACIN OINTMENT 14 GM TUBE TOP ONE (09:35)
[2022-06-10 09:49] LABS: SARS-CoV-2 Antigen Rapid Res Negative (Negative)
[2022-06-10] MEDS ORDERED: BUPIVACAINE 0.5% PF 10 ML VIAL ONE (10:20)
[2022-06-10 11:16] LABS: Protime INR 1.12
[2022-06-10] MEDS ORDERED: propofoL 200 MG/20 ML VIAL IV ONE (11:17)
[2022-06-10] MEDS ORDERED: dexAMETHasone 10 MG/ML VIAL ONE (11:17)
[2022-06-10] MEDS ORDERED: MIDAZOLAM HCL 2 MG/2 ML INJ ONE (11:17)
[2022-06-10] MEDS ORDERED: LIDOCAINE 2% MPF 5 ML VIAL ONE (11:18)
[2022-06-10] MEDS ORDERED: ONDANSETRON 4 MG/2 ML VIAL ONE (11:18)
[2022-06-10] MEDS ORDERED: KETOROLAC 30 MG/ML INJ ONE (11:18)
--- NOTE | 2022-06-10 14:45 | RAD REPORT ---
EXAM DESCRIPTION: US - Scrotum Testicles - 06/10/2022 2:36 pm CLINICAL HISTORY: INTRA OP Pain and swelling COMPARISON: Scrotum Testicles dated 06/09/2022 FINDINGS: An intraoperative examination was performed. The left testicle as a very abnormal appearance. The parenchyma is very heterogenous and is difficult to discern normal testicular features. No blood flow is seen to the right testicle. The right testicle appears unremarkable. Normal blood flow is seen to the left testicle. IMPRESSION: Very abnormal appearance to the left testicle seen without demonstratable intratesticula r blood flow.
[2022-06-10] MEDS ORDERED: HYDROCODONE/APAP 5/325 MG TAB PO PRN (15:29)
[2022-06-10] MEDS: HYDROMORPHONE HCL 1 MG/ML INJ ONE ×2 (15:31→15:37)
[2022-06-10 15:39] VITALS: O2SAT 96
[2022-06-10 16:15] VITALS: BP 154/80; TEMP 98.9
[2022-06-10] MEDS ORDERED: HYDROCODONE/APAP 5/325 MG TAB ONE (16:27)
--- NOTE | 2022-06-14 08:10 | OP ---
Surgeon: VIVEK GAYTAN Preoperative Diagnosis: Left necrotic testis. Postoperative Diagnoses: 1.Left necrotic testis. 2.Intrascrotal abscess. Principal Procedures: 1.Left inguinal scrotal exploration. 2.Intraoperative Doppler. 3.Intraoperative ultrasound using Radiology. 4.Left inguinal orchiectomy. 5.Intrascrotal debridement. Indication For Procedure: Mr. Sales is a 66-year-old gentleman who presented with chronic BPH with LUTS complicated by cysto, prostatitis that developed into an epididymal orchitis and possibly a mil d pyelonephritis associated with acute urinary retention, [facility] the [facility], now with recurrence of the epididymal orchitis that had been pr ogressively worsening over a 2-week period and ultrasound suggestive of absence of vascular flow or i dentifiable left testis. As a result, the patient was counseled on the potential that his testicle w as indeed necrotic and would need to be removed, but I counseled him that if on exploration, I saw so mething different, we would investigate further before performing the orchiectomy. Procedure In Detail: The patient was consented in the preoperative holding area before being transfe rred to the operative suite where general anesthesia was induced. He was given Ancef 2 g IV antimicr obial prophylaxis and pneumoboots were provided for DVT prophylaxis. He was placed supine on the pro cedure table, padded and secured to the table appropriately. His genitalia were shaved and then prep ped using ChloraPrep and draped in standard fashion. The case was begun by identifying a subinguinal incision approximately 3 cm in length, which was made after instilling subcutaneous 0.5% Marcaine. The incision was deepened through the subcutaneous tissues and through Carmen fascia before encounter ing the left cord structures. I then dissected the cord structures free and I was able to encircle i t with my finger and then a [place] drain. I then used this to attempt to deliver the testis into th e inguinal region, but this was not possible due to extensive fusion reaction of the testis to the in trascrotal dartos layers and parietal layer of the tunica vaginalis. As a result, after extending th e dissection into the scrotal region, I extended the inguinal incision in a T fashion just to the sup erior border of the scrotum with an attempt to avoid injury into the actual scrotal tissues given the extensive infection suspected there. After this, I was then able to continue a very extensive disse ction sharply and bluntly using electrocautery where required in order to free the testis where it wa s fused within the intrascrotal sac. Medially, there was a pocket where the epididymis clearly had a bscessed and involved the medial border of the scrotum at the raphae. So after extensive dissection to completely release the testis, I delivered the testis into the inguinal incision area and then set the testicle aside surrounded by moist towels. I then surveyed the intrascrotal contents and debrid ed the and infected appearing tissue from within the intrascrotal space. After completing the d ebridement, I then copiously irrigated the intrascrotal and the inguinal canal space and then applied the Doppler to assess for vascular flow. There was evidence of flow superiorly where the testicular artery entered the testis, but no distinct flow could be identified within the surface or body of th e testis itself. As a result, since the testis did not appear black or completely necrotic, I involv ed Radiology to come in and provide intraoperative ultrasound and survey the testis to assess for via bility. Upon ultrasonography, the internal contents of the testis were completely disrupted in appea jamey with no normal architecture and there was no significant flow within the internal component of the testis. Again only identifying vascular flow superiorly at the head of the testis where the test icular artery entered. As a result, after radiologist review of the imaging and confirmation that th e testis was indeed and that it did not even appear like a normal testis or even a testis at all , I then clamped the cord structures in the subinguinal region and utilized a 0 silk suture stick tie to ligate the cord structures. I then performed an additional 0 silk freehand tie and divided the c ord structure distal to it. The testis was then sent for pathologic analysis, and I ensured there wa s no bleeding from the cord remnant. As there was no bleeding, the suture was then cut and I turned my attention back to the scrotum. I had already placed a 10-[place] round KRISTY drain into the scrotum, secured it to the skin using a 2-0 nylon suture, and I then irrigated the subcutaneous tissues of the inguinal region with saline before reapproximating the subcutaneous tissues with 3-0 Vicryl suture a nd then closing the skin subcutaneously using 4-0 Monocryl suture. Dermabond was applied to the skin and the drain was placed to self suction using a bulb. Fluff gauze and scrotal support were applied , and the patient was awakened from general anesthesia before being transferred to a stretcher and th en transferred to the recovery room in good condition. Complications: None. Discharge Disposition: He should follow up in the Urology Clinic, potentially at the end of next wee k for drain removal, but we will have him monitor the drain output and when the drain output becomes minimal, that is when we will remove the drain. He should continue the Bactrim antimicrobial prophyl axis given to him preoperatively and we will follow up on the swab cultures that were taken intraoper atively, though not documented within the operative procedure note dictation above. TIAGO/AYESHA Voice ID: [id number] Report ID: [id number]
--- NOTE | 2022-06-14 14:39 | EKG ---
Test Date: 2022-06-10 Test Time: 09:02:36 Curator Of Collections: SHELL MEASUREMENT RESULTS: Intervals: Rate: 71 MO: 184 QRSD: 82 QT: 362 QTc: 393 [place]: P: 64 MO: 184 QRS: -19 T: 43 INTERPRETIVE STATEMENTS: Normal sinus rhythm with sinus arrhythmia Normal ECG No previous ECG available for comparison Electronically Signed On 06-14-22 14:33:28 CDT by Erich Cantrell
== END 2022-06-10 15:15 | disposition home or self-care (01) ==
LOC: OR 08:02
PROVIDERS: ATTEND Urology
PROC: 0VTB0ZZ Resection of Left Testis, Open Approach (ICD-10-PCS; principal; 2022-06-10 10:30)
DX: N50.89 Other specified disorders of the male genital organs (principal); N45.3 Epididymo-orchitis; N40.1 Benign prostatic hyperplasia with lower urinary tract symptoms; R97.20 Elevated prostate specific antigen [PSA]; Z20.822 Contact with and (suspected) exposure to COVID-19
CPT/HCPCS: 54520; 93005; 87070; 85025; 80048; 36415; 87205 ×2; 85610; 88305; 85730; 87075; 71045; 76870; 87811; J2704; J2250; J3010 ×3; J1100; J1170; J0690; J7120 ×2; J2405; J2001

== ENCOUNTER 2022-07-12 10:51 | Day surgery (SDC) | payer OTHER ==
[2022-07-07 11:19] LABS: Absolute Lymphocytes (CBC) 1.2 K/uL (0.7-4.9); Hematocrit 41.5 % (39.6-49.0); Lymphocytes % 18.3 % (15.3-44.8); MCV 86.6 fL (80-100); MPV 7.6 fL (7.6-11.3); RBC Red Blood Cell Count 4.79 M/uL (4.33-5.43)
[2022-07-07 11:25] LABS: Protime INR 1.14
[2022-07-07 11:58] LABS: SARS-CoV-2 Antigen Rapid Res Negative (Negative)
[2022-07-10 22:03] LABS: PSA FREE 1.68 ng/mL
[2022-07-12] MEDS ORDERED: Ringers Lactate 1,000 ML IV ONE ×2 (11:08→18:24)
[2022-07-12] MEDS ORDERED: Gentamicin Inj 160 MG in NA CHLORIDE 0.9% 100 ML IV ONE (13:00)
[2022-07-12] MEDS ORDERED: AMPICILLIN SODIUM 2 GM/VIAL VIAL ONE (13:07)
[2022-07-12] MEDS ORDERED: propofoL 200 MG/20 ML VIAL IV ONE (16:43)
[2022-07-12] MEDS ORDERED: ROCURONIUM 50 MG/5 ML VIAL IV ONE ×2 (16:43→18:13)
[2022-07-12] MEDS ORDERED: LIDOCAINE 1% MPF 5 ML VIAL ONE (16:43)
[2022-07-12] MEDS ORDERED: FENTANYL CITR 100 MCG/2 ML ONE ×2 (16:44→17:30)
[2022-07-12] MEDS ORDERED: KETOROLAC 30 MG/ML INJ ONE (17:07)
[2022-07-12] MEDS ORDERED: ONDANSETRON 4 MG/2 ML VIAL ONE (17:07)
[2022-07-12] MEDS ORDERED: dexAMETHasone 10 MG/ML VIAL ONE (17:07)
[2022-07-12] MEDS ORDERED: LABETALOL 20 MG/4ML SYRINGE IV ONE (17:29)
[2022-07-12] MEDS ORDERED: GLYCOPYRROLATE 0.2 MG/ML SYR ONE ×3 (18:10→18:33)
[2022-07-12] MEDS ORDERED: Phenylephrine HCl 10 MG/ML 1 ML VIAL ONE (18:18)
[2022-07-12] MEDS ORDERED: NEOSTIGMINE 1 MG/ML -10 ML VIAL ONE (18:34)
[2022-07-12] MEDS: HYDROMORPHONE HCL 1 MG/ML INJ ONE ×7 (19:35→20:05)
[2022-07-12] MEDS ORDERED: OPIUM/BELLADONNA SUPPOS (30-16.2 MG) PR ONE (19:38)
[2022-07-12] MEDS ORDERED: PHENAZOPYRIDINE 100MG TAB PO ONE ×2 (19:55→20:23)
[2022-07-12] MEDS ORDERED: CODEINE 30MG/APAP 300MG TAB PO PRN (19:55)
[2022-07-12] MEDS ORDERED: CODEINE 30MG/APAP 300MG TAB ONE (20:23)
[2022-07-12 20:51] VITALS: BP 156/77; TEMP 96.9; O2SAT 96
--- NOTE | 2022-07-13 08:55 | OP ---
Surgeon: VIVEK GAYTAN Preoperative Diagnoses: 1.Benign prostatic hypertrophy with lower urinary tract obstruction and symptoms. 2.History of complicated urinary tract infection with cysto-prostatitis and left epididymal orchitis , severe. 3.Status post left orchiectomy for necrotic left testis. Postoperative Diagnoses: 1.Benign prostatic hypertrophy with lower urinary tract obstruction and symptoms. 2.History of complicated urinary tract infection with cysto-prostatitis and left epididymal orchitis , severe. 3.Status post left orchiectomy for necrotic left testis. 4.Chronic cavitary prostatitis. 5.Bladder calculus. 6.Prostatic urethral calculi. Principle Procedures: 1.Cystoscopy and removal of a bladder calculus. 2.Bipolar transurethral resection of the prostate, extensive. Indication For Procedure: Mr. Sales initially was seen in consultation as an inpatient, having bee n seen in an outside hospital with severe epididymal orchitis involving his left testicle. Despite c ulture specific antimicrobial therapy with Levaquin as administered by the outside facility after inp atient IV antimicrobial management, the patient failed to have improvement in his symptoms and was ad mitted to [facility] where additional IV antimicrobial therapy was provided before he was eventually discharged to continue on the Levaquin, but was also treated eventually with azithromy roberto and achieved resolution of the left testicle swelling and pain. Several weeks later, the patient 's pain and symptoms recurred before he finally presented to the Urology Clinic for evaluation, at wh ich point, an ultrasound was performed and found that the recurrence of infection over the course of the last 2 weeks of his recurrence of symptoms had resulted in infarction of the testicle. As a resu lt, he underwent a left subinguinal orchiectomy and was essentially doing well and recovered from lizy t. He does have a right-sided hydrocele, which was only minimally bothersome to him. He had subsequ ently undergone evaluation revealing extensive prostatic urethral hypertrophy with lateral lobar hype rtrophy, anterior lobar overhang and projection, and intravesical projection of the median lobe abutt ing and obscuring the ureteral orifices. As a result, because of the severity of the obstruction due to BPH likely contributing to his complicated infections and loss of his left testis, the patient wa s counseled on the need for surgical intervention. Of note, he also had an elevated PSA that was kristin ntified with a high percent free PSA at 24%, which would suggest a 16% risk of prostate cancer. I di scussed this with the patient in detail explaining that we could proceed with a biopsy of his prostat e initially to rule out prostate cancer before proceeding with treatment, but given his severe issues with complicated infections and the less than 20% likelihood of malignancy, he may be better served with managing the prostatic urethral obstruction and then following up to assess resolution of his PS A elevation and evaluation further for prostate cancer. He agreed with the approach to proceed surgi krysta to manage the obstruction and presents today for definitive surgical management. Procedure In Detail: The patient was consented in the preoperative holding area before being transfe rred to operative suite where general anesthesia was induced. He was given ampicillin 2 g and gentam icin 160 mg IV antimicrobial prophylaxis and pneumo boots were provided for DVT prophylaxis. He was placed in the lithotomy position, padded and secured to the table appropriately, and pneumo boots wer e provided for DVT prophylaxis. His genitalia were prepped using Hibiclens and he was draped in kenton dard fashion. The case was begun using urethral sounds to dilate the meatus and fossa navicularis to 30-Japanese before the meatus would permit introduction of the 26-Japanese resectoscope sheath with a vi sual obturator. There was some resistance even after dilation to 30-Japanese with inserting the 26-[facility] sheath, but this was eventually done with minimal difficulty. The remainder of the urethra was t raversed until the bladder was entered and the bladder and prostatic urethra were surveyed with the f indings as had been documented above. The solitary bladder calculus was again observed, and essie david I was able to simply remove it using an [employer] evacuator via the 26-Japanese resectoscope sheath. I then utilized the bipolar resection loop to began resection of the prostatic urethral obstruction. Starting with the intravesical component of the median lobe projecting, with the ureteral orifice eas e in direct vision, I resected the portion of the median lobe that was abutting the orifices and over lapping the trigone until the median bar was leveled to the bladder neck and level of the trigone. I then continued the resection of the remainder of the median bar all the way down to the verumontanum with a prostatic urethral length that was likely 4-5 cm in length. The resection was then continued into the left lateral lobe initially resecting the intravesically projecting component of that at th e level of the bladder neck extending to the anterior lobe and resecting that before performing a sim ilar resection of the level of the bladder neck on the right side extending anteriorly. I then cindy nued the resection on the left side in the midzone of the prostate extending to the verumontanum. At the level of the verumontanum, interdigitating and overlapping and lateral lobar hypertrophy was the n resected until a smooth open channel had begun to be created. Similar resection was performed from the midzone of the prostate at the bladder neck extending to the verumontanum, also resecting the ov erlapping lateral lobar hypertrophy at the apex until that open channel had been created. Extensive additional resection was required given the size of his gland and obstruction, and of note, there wer e multiple prostatic urethral calculi encountered in pockets within the prostate along with comedonec rosis within pockets and evidence of purulence consistent with chronic prostatitis and microabscesses noted throughout, particularly within the inferior/posterior zone of the prostatic urethra. Once al l of these cavitary areas were opened and the prostatic urethral calculi were removed and once a sign ificant component of all of the prostatitis and abscesses associated had been unroofed and once the p rostatic urethra had essentially been resected creating a nice smooth channel from the verumontanum a nd through to the bladder neck, I ensured to Ellik evacuate all of the prostatic calculi and prostati c urethral chips before performing extensive fulguration on multiple occasions to stop any and all bl eeding. While fulguration was performed throughout the resection given the extensive and active in o ngoing bleeding associated with his chronic inflammation and infection of his prostate, extensive add itional fulguration was required just to settle all of the oozing that was present. Ellik evacuation was performed on multiple occasions, and with the bladder decompressed, I fulgurated any and all res idual arterial capillary bleeding and venous ooze. In the end, with the bladder free of any prostati c urethral chips or calculi and with the prostatic fossa completely hemostatic and his bladder decomp ressed, I then back-filled his bladder with saline after ensuring there was absolutely 0 ongoing blee ding, and then removed the resectoscope replacing it with a 22-Japanese 3-way Stuart catheter. 30 cc of sterile water was placed in the balloon, and the catheter was placed to moderate traction securing i t to his left lower thigh. The catheter was connected to slow drip CBI and the returning efflux was completely clear. The patient was taken out of the lithotomy position, awakened from general anesthe doug, transferred to a stretcher, and then transferred to the recovery room in good condition. Complications: None. Discharge Disposition: I would like him to keep the catheter at least till Monday and he might even benefit keeping it till Monday if he can tolerate it. He will be discharged with a 7-day course of a ntimicrobial and subsequent follow up will be arranged in about 3 months where he should obtain a PSA preclinic. IMELDA Voice ID: [id number] Report ID: [id number]
== END 2022-07-12 21:45 | disposition home or self-care (01) ==
LOC: OR 10:51
PROVIDERS: ATTEND Urology
PROC: 0TCB8ZZ Extirpation of Matter from Bladder, Via Natural or Artificial Opening Endoscopic (ICD-10-PCS; 2022-07-12)
PROC: 0VT08ZZ Resection of Prostate, Via Natural or Artificial Opening Endoscopic (ICD-10-PCS; principal; 2022-07-12 14:30)
DX: N40.1 Benign prostatic hyperplasia with lower urinary tract symptoms (principal); N21.0 Calculus in bladder; N21.1 Calculus in urethra; N41.8 Other inflammatory diseases of prostate; Z87.440 Personal history of urinary (tract) infections; Z20.822 Contact with and (suspected) exposure to COVID-19
CPT/HCPCS: 87088; 85025; 87086; 80048; 36415; 85610; 88300; 88305; 85730; 84153; 84154; 87811; 52601; 52310; J2704; J2710; J2001; J2370; J1580; J3010 ×2; J1100; J1170 ×3; J7120 ×2; J2405; J0290

== ENCOUNTER 2024-07-30 10:09 | Day surgery (SDC) | payer BC, OTHER ==
--- NOTE | 2024-07-29 09:11 | RAD REPORT ---
EXAMINATION: TWO VIEW CHEST XR CLINICAL INDICATION: Male, 68 years old. Hypertension. Pre op pending hydrocelectomy TECHNIQUE: 2 view radiographs of the chest were performed. COMPARISON: 06/10/2022 FINDINGS: The lungs are well inflated and clear. No pneumothorax or sizable effusion. The heart is normal in si ze. Mediastinal contours are unremarkable. IMPRESSION: No acute or significant abnormalities.
[2024-07-30] MEDS ORDERED: Ringers Lactate 1,000 ML IV ONE (10:28)
[2024-07-30] MEDS ORDERED: BACITRACIN OINTMENT 14 GM TUBE TOP ONE (10:43)
--- NOTE | 2024-07-30 12:54 | EKG ---
Test Date: 2024-07-29 Test Time: 08:15:50 Butter Grader: JOSHUA MEASUREMENT RESULTS: Intervals: Rate: 63 OR: 188 QRSD: 96 QT: 390 QTc: 399 [place]: P: 75 OR: 188 QRS: -26 T: 64 INTERPRETIVE STATEMENTS: Normal sinus rhythm Septal infarct, age undetermined Abnormal ECG Compared to ECG 06/10/2022 09:02:36 Myocardial infarct finding now present Sinus arrhythmia no longer present Electronically Signed On 07-30-24 12:50:39 CDT by Jonathan Poe
[2024-07-30] MEDS ORDERED: propofoL 200 MG/20 ML VIAL IV ONE (13:54)
[2024-07-30] MEDS ORDERED: MIDAZOLAM HCL 2 MG/2 ML INJ ONE (13:54)
[2024-07-30] MEDS ORDERED: LIDOCAINE 1% MPF 5 ML VIAL ONE (13:54)
[2024-07-30] MEDS ORDERED: KETOROLAC 30 MG/ML INJ ONE (13:54)
[2024-07-30] MEDS ORDERED: FENTANYL CITR 100 MCG/2 ML ONE (13:54)
[2024-07-30] MEDS: CEFAZOLIN SODIUM 2 GM/VIAL ONE (14:20)
[2024-07-30] MEDS: BUPIVACAINE 0.25% PF 30 ML VIAL ONE (14:36)
[2024-07-30] MEDS ORDERED: GLYCOPYRROLATE 0.2 MG/ML SYR ONE (14:40)
--- NOTE | 2024-07-30 15:55 | P.OP ---
Date of Service: 07/30/24 Preoperative diagnosis: Right hydrocele s/p left orchiectomy Postoperative diagnoses: Right hydrocele s/p left orchiectomy Lipoma of the cord Principal procedures: Right [place] hydrocelectomy Excision of lipoma of the cord Indication for procedure: 68-year-old gentleman with history of complicated epididymal orchitis with abscess development requiring orchiectomy on the left presents with right hydrocele development. It was significant in size and bothersome. As a result, he elected to proceed with definitive surgical management via hydrocelectomy. Procedure note: The patient was consented in the preoperative holding area before being transferred to the operative suite where general anesthesia was induced. He was placed supine on the operative table, padded and secured appropriately. His genitalia was prepped with Hibiclens, owing to an iodine allergy, and the right hemiscrotum was shaved before he was draped in standard fashion. The case has begun identifying a leg numbness line incision in the right hemiscrotum anteriorly. I injected quarter percent Marcaine subcutaneously and then incised the skin of the incision marking using a 15 blade. This was then deepened through the subcutaneous and dartos layers using electrocautery and dissection. The parietal layer of the tunica vaginalis was encountered; and because of its large size, I utilized an 18-gauge needle to decompress it somewhat. I then continued the dissection sharply using electrocautery of the dartos tissues releasing them off of the surface of the tunica vaginalis. Once sufficiently freed, I delivered the entirety of the sac and the testis through the incision hiatus created, and I continued to dissect the remaining dartos layers off of the hydrocele sac all the way until the junction with the cord at the external inguinal ring. In the process, I encountered a lipoma of the cord, and I excised this sharply using electrocautery. This was sent for pathologic analysis. I then opened the sac anteriorly and incised it anteroposteriorly suctioning out the hydrocele fluid contained within. It was straw-colored and clear per routine. I then folded the hydrocele sac behind the testis and excised a significant portion of the sac leaving only enough tissue in order to suture the sac wrapped around the cord structures posteriorly. The sac was sent for pathologic analysis. Then using a 3-0 Vicryl suture in a running and every third locking fashion, I sutured the hydrocele sac behind the testis and the cord structures ensuring hemostasis. Once this was completed, I irrigated the testis and the internal aspects of the scrotum and then ensured absolute hemostasis using electrocautery and a pinpoint fashion. Once hemostasis was complete, I then returned the testis in its proper orientation back into the scrotal sac and then reapproximated the dartos layers of the scrotal incision using a running 3-0 Vicryl suture. The skin was then approximated using running 3-0 chromic dipped in bacitracin. The incision was then washed using sterile water, and bacitracin was applied to the incision line. Fluff gauze and a scrotal support was then applied. The patient was then awakened from general anesthesia before being transferred to a stretcher, and then transferred to the recovery room in good condition. Complications: None Discharge disposition: He will be standard follow-up pathway for a hydrocelectomy and I would like to see him postoperatively within 2 to 4 weeks.
[2024-07-30] MEDS: HYDROMORPHONE HCL 1 MG/ML INJ ONE ×3 (15:59→16:38)
[2024-07-30 16:49] VITALS: O2SAT 95
[2024-07-30 17:13] VITALS: BP 181/81; TEMP 97.4
[2024-07-30] MEDS ORDERED: CODEINE 30MG/APAP 300MG TAB ONE (17:15)
[2024-07-30] MEDS: CODEINE 30MG/APAP 300MG TAB PO PRN (17:18)
== END 2024-07-30 17:50 | disposition home or self-care (01) ==
LOC: OR 10:09
PROVIDERS: ATTEND Urology
PROC: 0VBG0ZZ Excision of Left Spermatic Cord, Open Approach (ICD-10-PCS; 2024-07-30)
PROC: 0VB60ZZ Excision of Right Tunica Vaginalis, Open Approach (ICD-10-PCS; principal; 2024-07-30 11:30)
DX: N43.3 Hydrocele, unspecified (principal); D17.6 Benign lipomatous neoplasm of spermatic cord; N32.81 Overactive bladder
CPT/HCPCS: 55040; 55520; 93005; 88302; 71046; J2704; J2001; J2250; J3010; J1170 ×3; J7120

== ENCOUNTER 2025-05-27 11:00 | Day surgery (SDC) | payer OTHER ==
[2025-05-23 09:32] LABS: Absolute Lymphocytes (CBC) 2.3 K/uL (0.7-4.9); Hematocrit 47.6 % (39.6-49.0); Hemoglobin 16.7 g/dL (13.6-17.9); MCH 30.9 pg (27.0-35.0); MCHC 35.1 g/dL (32.0-36.0); MCV 87.9 fL (80-100); MPV 9.0 fL (7.6-11.3); Nucleated RBC Absolute Count 0.0 (0-0); Nucleated Red Blood Cells % 0.2 % (0-0); RBC Red Blood Cell Count 5.42 M/uL (4.33-5.43); White Blood Count 8.10 thou/uL (4.3-10.9)
[2025-05-23 09:41] LABS: PT Prothrombin Time 12.4 SECONDS (10-13.0); PTT, Activated Partial Thromb 31.4 SECONDS (27.2-37.4); Protime INR 1.1
[2025-05-23 09:47] LABS: Anion Gap 6.9 mEq/L (5.0-15.0); BUN Blood Urea Nitrogen 18.0 mg/dL (7-18); Glucose Level 159.0 mg/dL (74-106); Potassium 3.9 mEq/L (3.5-5.1)
[2025-05-27] MEDS ORDERED: NA CHLORIDE 0.9% 500 ML ONE (11:03)
[2025-05-27] MEDS ORDERED: HEPARIN 10,000 UNIT/10 ML VIAL IV ONE (11:39)
[2025-05-27] MEDS ORDERED: HEPA 1000U/500MLS 2,000 UNIT/1,000 ML BAG IV ONE (11:39)
[2025-05-27] MEDS ORDERED: LIDOCAINE 1% 20 ML MDV ONE (11:39)
[2025-05-27] MEDS ORDERED: TICAGRELOR 90 MG TABLET PO ONE (11:40)
[2025-05-27] MEDS ORDERED: ATROPINE SULF 1 MG/10 ML SYR IV ONE (11:40)
[2025-05-27] MEDS ORDERED: HEPARIN 5000 UNIT/ML 1 ML VIAL ONE (11:40)
[2025-05-27] MEDS ORDERED: CLOPIDOGREL 75 MG TABLET ONE (11:40)
[2025-05-27] MEDS ORDERED: ASPIRIN 325 MG TAB ONE (11:40)
[2025-05-27] MEDS ORDERED: VERAPAMIL HCL 10 MG/4 ML VIAL IV ONE (11:40)
[2025-05-27] MEDS ORDERED: FENTANYL CITR 100 MCG/2 ML ONE (11:41)
[2025-05-27] MEDS ORDERED: FLUMAZENIL 0.1 MG/ML (5 mL VIAL) IV ONE (11:41)
[2025-05-27] MEDS ORDERED: NALOXONE 0.4 MG/ML VIAL ONE (11:41)
[2025-05-27] MEDS ORDERED: MIDAZOLAM HCL 2 MG/2 ML INJ ONE (11:42)
[2025-05-27] MEDS ORDERED: DIPHENHYDRAMINE 50 MG/ML VIAL ONE (12:14)
[2025-05-27] MEDS ORDERED: METHYLPREDNISOLONE 125 MG INJ ONE (12:14)
[2025-05-27] MEDS ORDERED: NITROGLYCERIN 0.4 MG/TAB SL ONE (13:19)
[2025-05-27 15:24] VITALS: O2SAT 95
[2025-05-27 16:51] VITALS: BP 175/66
--- NOTE | 2025-05-28 04:09 | OP ---
Date of Procedure: 05/27/2025 Surgeon: CIRA PITTMAN Procedure Performed: 1. Coronary angiogram. 2. Left heart catheterization. 3. Right heart catheterization. 4. PCI of proximal and mid left circumflex. I used a 3.0 x 20 mm Synergy drug-eluting stent proximal ly distally. I used 2.5 x 8 mm Synergy drug-eluting stent. Indication: 1. Unstable angina. 2. Shortness of breath. Access: 1. Right radial artery 6-Ugandan, closed with TR band. 2. Right IJ 7-Ugandan, closed with manual pressure. Complications: None. Bleeding: Less than 50 mL. Total Sedation Time: An hour and half, about 90 minutes. Used fentanyl, Versed. Description Of Procedure: After risks, benefits, and alternatives were explained, the patient agreed to procedure and signed informed consent. The patient was brought into cardiac catheterization labo ratory, prepped and draped in sterile fashion. Then, I accessed right radial artery using pediatric micropuncture kit, ultrasound guidance, and placed 6-Ugandan slender sheath. I then accessed right IJ using micropuncture kit, ultrasound guidance, and placed a 7-Ugandan [place] sheath and took a ballo on-tipped 7-Ugandan [place] catheter through the IJ access into the right atrium, right ventricle, pulmon mandy artery and wedge, obtained waveform and pressure and calculated cardiac output using a thermodilu tional method and then removed the [place] and the sheath was removed. Manual pressure was used for heri sure with good hemostasis. Then, I took 5-Ugandan [place] 4 catheter over J-wire into the aortic root t hrough the radial access across the aortic valve, measured the LVEDP. Pullback did not record any gr adient, then engaged left main, took standard views and then in the RCA, took standard views and then gave systemic heparin to assure ACT level above 250 throughout the procedure and loaded with 600 mg of Plavix, 325 mg aspirin and took a 6-Ugandan EBU 3.5 guide into the aortic root over a J-wire, engag ed left main, took run-through wire into the left circumflex and placed it in the OM and then another run-through wire into the left circumflex and performed balloon angioplasty of the ostial OM disease using a 2.5 x 12 mm noncompliant balloon, lesion opened very well with no dissection, RENETTA-3 flow so was left alone because it comes on very sharp angle which makes it extremely hard or rather impossib le to deliver a stent. Then, I took a 3.0 balloon pre-dilated the proximal to mid lesions and then p laced a 3.0 x 20 mm Synergy drug-eluting stent proximal to mid circ and then placed distally 2.5 x 8 mm Synergy drug-eluting stent to overlap with the first one. Excellent results at the end. RENETTA-3 f low in both left circumflex and OM. There was a disease in the distal portion of the left circumflex at 70% but the vessel is small to hold the stent, so it was left to medical management and then juan aline the wire. Final angiogram was satisfactory and then removed the guide and the sheath and placed TR band with good hemostasis. Findings: 1. Left main: Large and normal. 2. LAD: Large vessel. Proximal segment is normal. In mid segment, there is diffuse 30% to 40% sten osis. Rest of LAD is normal. Normal diagonal branches. Very large diagonal branches, goes to the l ateral wall. 3. Left circumflex: Moderate size, proximal 90%, mid 80%, status post successful PCI. OM1 has ostia l 80%, status post balloon angioplasty successfully and the distal left circumflex has 70% stenosis t hat was left for medical management at this time. 4. RCA: It is dominant, proximal 40%, mid 30%, and the PDA has diffuse 60% stenosis with multiple ta ndem lesions that are 70%, LVEDP is 9 mmHg. 5. Right heart catheterization numbers: RA pressure is 6. PA pressure is 26/10, mean of 13. RV was 24/6, mean of 6. Pulmonary wedge pressure was 8, LVEDP was 10 mmHg, and cardiac output was 7.4 L/mi nute. Conclusion: 1. Severe left circumflex disease, status post successful PCI as above. 2. Normal filling pressures. Recommendations: 1. Aspirin, Plavix, high-dose statin. 2. The patient still has significant disease in distal left circ and the PDA. We will monitor him cl inically. If the chest pain is resolved, then we will plan for stress test in 6 months. If the ches t pain continues to happen, then we will bring him back in 4 weeks and try to do PCI of the left circ umflex distally, hoping that after opening the artery proximally that the artery will get slightly bi gger to allow stent placement. SR/MODL Voice ID: [id number] Report ID: [id number]
== END 2025-05-27 15:55 | disposition home or self-care (01) ==
LOC: CCL 11:00
PROVIDERS: ATTEND Internal Medicine
DX: I25.110 Atherosclerotic heart disease of native coronary artery with unstable angina pectoris (principal); I44.1 Atrioventricular block, second degree; I10 Essential (primary) hypertension; I73.9 Peripheral vascular disease, unspecified; F17.210 Nicotine dependence, cigarettes, uncomplicated; Z88.2 Allergy status to sulfonamides; Z88.5 Allergy status to narcotic agent; Z88.8 Allergy status to other drugs, medicaments and biological substances; Z91.048 Other nonmedicinal substance allergy status
CPT/HCPCS: 93005; 85025; 80048; 36415; 85610; 85347 ×2; 85730; 93460; 76937; C1893; Q9966; Q9967; C1725; C9600; J1644 ×2; J2003; J1200; J2250; J3010; J2919; J7040; C1874; 92928; 99152; 99153; J0461; J2310

== ENCOUNTER 2025-07-16 10:15 | Day surgery (SDC) | payer OTHER ==
[2025-07-10 11:01] LABS: Absolute Lymphocytes (CBC) 1.6 K/uL (0.7-4.9); Hematocrit 41.4 % (39.6-49.0); Hemoglobin 14.6 g/dL (13.6-17.9); MCH 31.0 pg (27.0-35.0); MCHC 35.2 g/dL (32.0-36.0); MCV 88.2 fL (80-100); MPV 8.4 fL (7.6-11.3); Nucleated RBC Absolute Count 0.0 (0-0); Nucleated Red Blood Cells % 0.5 % (0-0); RBC Red Blood Cell Count 4.70 M/uL (4.33-5.43); White Blood Count 7.20 thou/uL (4.3-10.9)
[2025-07-10 11:02] LABS: PT Prothrombin Time 12.7 SECONDS (10-13.0); PTT, Activated Partial Thromb 30.1 SECONDS (27.2-37.4); Protime INR 1.13
[2025-07-10 11:12] LABS: Anion Gap 9.1 mEq/L (5.0-15.0); BUN Blood Urea Nitrogen 12.0 mg/dL (7-18); Glucose Level 158.0 mg/dL (74-106); Potassium 4.1 mEq/L (3.5-5.1)
[2025-07-16] MEDS ORDERED: NA CHLORIDE 0.9% 500 ML ONE (11:16)
[2025-07-16 11:50] VITALS: BP 150/74; O2SAT 98
[2025-07-16] MEDS ORDERED: FENTANYL CITR 100 MCG/2 ML ONE (12:21)
[2025-07-16] MEDS ORDERED: MIDAZOLAM HCL 2 MG/2 ML INJ ONE (12:21)
[2025-07-16] MEDS ORDERED: HEPA 1000U/500MLS 2,000 UNIT/1,000 ML BAG IV ONE (12:27)
[2025-07-16] MEDS ORDERED: VERAPAMIL HCL 10 MG/4 ML VIAL IV ONE (12:27)
[2025-07-16] MEDS ORDERED: LIDOCAINE 1% 20 ML MDV ONE (12:27)
[2025-07-16] MEDS ORDERED: HEPARIN 10,000 UNIT/10 ML VIAL IV ONE (12:27)
[2025-07-16] MEDS ORDERED: HEPARIN 5000 UNIT/ML 1 ML VIAL ONE (12:27)
== END 2025-07-16 12:53 | disposition home health service (06) ==
LOC: CCL 10:15
PROVIDERS: ATTEND Internal Medicine
PROC: 4A023N7 Measurement of Cardiac Sampling and Pressure, Left Heart, Percutaneous Approach (ICD-10-PCS; principal; 2025-07-16)
PROC: B2111ZZ Fluoroscopy of Multiple Coronary Arteries using Low Osmolar Contrast (ICD-10-PCS; 2025-07-16)
DX: I25.10 Atherosclerotic heart disease of native coronary artery without angina pectoris (principal); Z53.9 Procedure and treatment not carried out, unspecified reason
CPT/HCPCS: 85025; 80048; 36415; 85610; 85730; 93458; J1644 ×2; J7040; J2003; J2250; J3010